=== PATIENT | female | born 1950 | race Caucasian/White ===

== ENCOUNTER 2022-04-21 07:59 | Outpatient (CLI) | payer MEDICARE, BC | END 2022-04-21 08:00 | disposition home or self-care (01) | LOC: CSHWCC 07:59 | PROVIDERS: ATTEND Nurse Practitioner Family | DX: L97.512 Non-pressure chronic ulcer of other part of right foot with fat layer exposed (principal) ==

== ENCOUNTER 2022-05-05 10:32 | Outpatient (CLI) | payer MEDICARE, BC | END 2022-05-05 10:33 | disposition home or self-care (01) | LOC: CSHWCC 10:32 | PROVIDERS: ATTEND Nurse Practitioner Family | DX: L97.512 Non-pressure chronic ulcer of other part of right foot with fat layer exposed (principal) ==

== ENCOUNTER 2022-05-19 09:50 | Outpatient (CLI) | payer MEDICARE, BC | END 2022-05-19 09:51 | disposition home or self-care (01) | LOC: CSHWCC 09:50 | PROVIDERS: ATTEND Nurse Practitioner Family | DX: L97.512 Non-pressure chronic ulcer of other part of right foot with fat layer exposed (principal) ==

== ENCOUNTER 2022-09-06 08:24 | Outpatient (CLI) | payer MEDICARE, BC | END 2022-09-06 08:25 | disposition home or self-care (01) | LOC: CSHWCC 08:24 | PROVIDERS: ATTEND Nurse Practitioner Family | DX: L97.512 Non-pressure chronic ulcer of other part of right foot with fat layer exposed (principal) | CPT/HCPCS: 97597; 99212; G0463 ==

== ENCOUNTER 2022-10-19 08:04 | Outpatient (CLI) | payer MEDICARE, BC | END 2022-10-19 08:05 | disposition home or self-care (01) | LOC: CSHWCC 08:04 | PROVIDERS: ATTEND Nurse Practitioner Family | DX: L97.512 Non-pressure chronic ulcer of other part of right foot with fat layer exposed (principal) | CPT/HCPCS: 97139; G0463; 99212 ==

== ENCOUNTER 2024-12-04 15:43 | Outpatient (CLI) | payer MEDICARE, BC | END 2024-12-04 15:44 | disposition home or self-care (01) | LOC: CSHWCC 15:43 | PROVIDERS: ATTEND Nurse Practitioner Family | DX: I87.331 Chronic venous hypertension (idiopathic) with ulcer and inflammation of right lower extremity (principal); L97.511 Non-pressure chronic ulcer of other part of right foot limited to breakdown of skin; I87.2 Venous insufficiency (chronic) (peripheral); M06.9 Rheumatoid arthritis, unspecified; M14.671 Charcot's joint, right ankle and foot | CPT/HCPCS: 11042; G0463; 99213 ==

== ENCOUNTER 2024-12-19 11:59 | Outpatient (CLI) | payer MEDICARE, BC | END 2024-12-19 12:00 | disposition home or self-care (01) | LOC: CSHWCC 11:59 | PROVIDERS: ATTEND Nurse Practitioner Family | DX: I87.331 Chronic venous hypertension (idiopathic) with ulcer and inflammation of right lower extremity (principal); L97.511 Non-pressure chronic ulcer of other part of right foot limited to breakdown of skin; M14.671 Charcot's joint, right ankle and foot; M06.9 Rheumatoid arthritis, unspecified; I87.2 Venous insufficiency (chronic) (peripheral) | CPT/HCPCS: 11042; 99213; G0463 ==

== ENCOUNTER 2024-12-26 12:52 | Outpatient (CLI) | payer MEDICARE, BC | END 2024-12-26 12:53 | disposition home or self-care (01) | LOC: CSHWCC 12:52 | PROVIDERS: ATTEND Nurse Practitioner Family | DX: I87.331 Chronic venous hypertension (idiopathic) with ulcer and inflammation of right lower extremity (principal); L97.511 Non-pressure chronic ulcer of other part of right foot limited to breakdown of skin; L97.311 Non-pressure chronic ulcer of right ankle limited to breakdown of skin; M14.671 Charcot's joint, right ankle and foot; M06.9 Rheumatoid arthritis, unspecified; I87.2 Venous insufficiency (chronic) (peripheral) | CPT/HCPCS: 11042; 99213; G0463 ==

== ENCOUNTER 2025-01-02 12:55 | Outpatient (CLI) | payer MEDICARE, BC | END 2025-01-02 12:56 | disposition home or self-care (01) | LOC: CSHWCC 12:55 | PROVIDERS: ATTEND Nurse Practitioner Family | DX: I87.331 Chronic venous hypertension (idiopathic) with ulcer and inflammation of right lower extremity (principal); L97.511 Non-pressure chronic ulcer of other part of right foot limited to breakdown of skin; L97.311 Non-pressure chronic ulcer of right ankle limited to breakdown of skin; M14.671 Charcot's joint, right ankle and foot; M06.9 Rheumatoid arthritis, unspecified; I87.2 Venous insufficiency (chronic) (peripheral) | CPT/HCPCS: 11042; 11043; G0463; 99213 ==

== ENCOUNTER 2025-01-15 11:02 | Outpatient (CLI) | payer MEDICARE, BC | END 2025-01-15 11:03 | disposition home or self-care (01) | LOC: CSHWCC 11:02 | PROVIDERS: ATTEND Nurse Practitioner Family | DX: I87.331 Chronic venous hypertension (idiopathic) with ulcer and inflammation of right lower extremity (principal); L97.511 Non-pressure chronic ulcer of other part of right foot limited to breakdown of skin; L97.311 Non-pressure chronic ulcer of right ankle limited to breakdown of skin; M14.671 Charcot's joint, right ankle and foot; M06.9 Rheumatoid arthritis, unspecified; I87.2 Venous insufficiency (chronic) (peripheral) | CPT/HCPCS: 11042; 11043 ==

== ENCOUNTER 2025-01-23 13:40 | Outpatient (CLI) | payer MEDICARE, BC | END 2025-01-23 13:41 | disposition home or self-care (01) | LOC: CSHWCC 13:40 | PROVIDERS: ATTEND Nurse Practitioner Family | DX: I87.331 Chronic venous hypertension (idiopathic) with ulcer and inflammation of right lower extremity (principal); L97.511 Non-pressure chronic ulcer of other part of right foot limited to breakdown of skin; L97.311 Non-pressure chronic ulcer of right ankle limited to breakdown of skin; M14.671 Charcot's joint, right ankle and foot; M06.9 Rheumatoid arthritis, unspecified; I87.2 Venous insufficiency (chronic) (peripheral) | CPT/HCPCS: 11042; 11043 ==

== ENCOUNTER 2025-01-30 14:56 | Outpatient (CLI) | payer MEDICARE, BC | END 2025-01-30 14:57 | disposition home or self-care (01) | LOC: CSHWCC 14:56 | PROVIDERS: ATTEND Nurse Practitioner Family | DX: I87.331 Chronic venous hypertension (idiopathic) with ulcer and inflammation of right lower extremity (principal); L97.511 Non-pressure chronic ulcer of other part of right foot limited to breakdown of skin; L97.311 Non-pressure chronic ulcer of right ankle limited to breakdown of skin; M14.671 Charcot's joint, right ankle and foot; M06.9 Rheumatoid arthritis, unspecified; I87.2 Venous insufficiency (chronic) (peripheral) | CPT/HCPCS: 11042 ==

== ENCOUNTER 2025-02-06 11:04 | Outpatient (CLI) | payer MEDICARE, BC | END 2025-02-06 11:05 | disposition home or self-care (01) | LOC: CSHWCC 11:04 | PROVIDERS: ATTEND Nurse Practitioner Family | DX: I87.331 Chronic venous hypertension (idiopathic) with ulcer and inflammation of right lower extremity (principal); L97.511 Non-pressure chronic ulcer of other part of right foot limited to breakdown of skin; L97.311 Non-pressure chronic ulcer of right ankle limited to breakdown of skin; M14.671 Charcot's joint, right ankle and foot; M06.9 Rheumatoid arthritis, unspecified; I87.2 Venous insufficiency (chronic) (peripheral) | CPT/HCPCS: 11042 ==

== ENCOUNTER 2025-02-14 12:51 | Outpatient (CLI) | payer MEDICARE, BC | END 2025-02-14 12:52 | disposition home or self-care (01) | LOC: CSHWCC 12:51 | PROVIDERS: ATTEND Nurse Practitioner Family | DX: I87.331 Chronic venous hypertension (idiopathic) with ulcer and inflammation of right lower extremity (principal); L97.511 Non-pressure chronic ulcer of other part of right foot limited to breakdown of skin; L97.311 Non-pressure chronic ulcer of right ankle limited to breakdown of skin; I87.2 Venous insufficiency (chronic) (peripheral); M14.671 Charcot's joint, right ankle and foot; M06.9 Rheumatoid arthritis, unspecified | CPT/HCPCS: 11042 ==

== ENCOUNTER 2025-03-06 12:45 | Outpatient (CLI) | payer MEDICARE, BC | END 2025-03-06 12:46 | disposition home or self-care (01) | LOC: CSHWCC 12:45 | PROVIDERS: ATTEND Nurse Practitioner Family | DX: I87.331 Chronic venous hypertension (idiopathic) with ulcer and inflammation of right lower extremity (principal); L97.511 Non-pressure chronic ulcer of other part of right foot limited to breakdown of skin; L97.311 Non-pressure chronic ulcer of right ankle limited to breakdown of skin; M14.671 Charcot's joint, right ankle and foot; M06.9 Rheumatoid arthritis, unspecified; I87.2 Venous insufficiency (chronic) (peripheral) | CPT/HCPCS: 11042 ==

== ENCOUNTER 2025-03-13 12:40 | Outpatient (CLI) | payer MEDICARE, BC | END 2025-03-13 12:41 | disposition home or self-care (01) | LOC: CSHWCC 12:40 | PROVIDERS: ATTEND Nurse Practitioner Family | DX: I87.331 Chronic venous hypertension (idiopathic) with ulcer and inflammation of right lower extremity (principal); L97.511 Non-pressure chronic ulcer of other part of right foot limited to breakdown of skin; L97.311 Non-pressure chronic ulcer of right ankle limited to breakdown of skin; M14.671 Charcot's joint, right ankle and foot; M06.9 Rheumatoid arthritis, unspecified; I87.2 Venous insufficiency (chronic) (peripheral) | CPT/HCPCS: 11042; 15271; Q4133 ==

== ENCOUNTER 2025-04-03 13:31 | Outpatient (CLI) | payer MEDICARE, BC | END 2025-04-03 13:32 | disposition home or self-care (01) | LOC: CSHWCC 13:31 | PROVIDERS: ATTEND Nurse Practitioner Family | DX: I87.331 Chronic venous hypertension (idiopathic) with ulcer and inflammation of right lower extremity (principal); L97.511 Non-pressure chronic ulcer of other part of right foot limited to breakdown of skin; L97.311 Non-pressure chronic ulcer of right ankle limited to breakdown of skin; M14.671 Charcot's joint, right ankle and foot; M06.9 Rheumatoid arthritis, unspecified; I87.2 Venous insufficiency (chronic) (peripheral) | CPT/HCPCS: 15275; Q4133 ==

== ENCOUNTER 2025-04-10 13:03 | Outpatient (CLI) | payer MEDICARE, BC | END 2025-04-10 13:04 | disposition home or self-care (01) | LOC: CSHWCC 13:03 | PROVIDERS: ATTEND Nurse Practitioner Family | DX: I87.331 Chronic venous hypertension (idiopathic) with ulcer and inflammation of right lower extremity (principal); L97.511 Non-pressure chronic ulcer of other part of right foot limited to breakdown of skin; L97.311 Non-pressure chronic ulcer of right ankle limited to breakdown of skin; M14.671 Charcot's joint, right ankle and foot; M06.9 Rheumatoid arthritis, unspecified; I87.2 Venous insufficiency (chronic) (peripheral) ==